=== PATIENT | male | born 1970 | race Caucasian/White ===

== ENCOUNTER 2017-09-07 13:23 | Emergency (ER) | payer OTHER ==
[~2017-09-07] VITALS: Ht 152.4 cm; Wt 84.5 kg
[~2017-09-07 13:23] MED LIST: BACTDS PO; CEPH-443 PO; HYDR-3498 PO; NAPR-260 PO
[2017-09-07 13:25] VITALS: Ht 152.4 cm; Wt 84.5 kg
[2017-09-07] MEDS ORDERED: IBUPROFEN 600 MG TAB PO ONE (15:00)
--- NOTE | 2017-09-07 15:47 | RADRPT ---
PROCEDURE: XR Chest. CLINICAL INDICATION: Chest pain. TECHNIQUE: Single frontal chest x-ray. COMPARISON: Chest radiograph 10/17/2013. FINDINGS: The lungs volumes are diminished. There are compressive changes with vascular crowding and basilar atelectasis. No pneumothorax, pleural effusion or consolidation is noted. The cardiomediastinal si lhouette is unremarkable. No acute osseous abnormality is noted. IMPRESSION: 1. Low lung volumes with compressive changes and basilar atelectasis. 2. Otherwise, no acute cardiopulmonary abnormality. RPTAT: HH .Renetta Briceno MD, Date Time Electronically viewed and signed by .Renetta Briceno MD, on 09/07/2017 15:47 .N/
--- NOTE | 2017-09-07 16:46 | RADRPT ---
PROCEDURE: CT Lumbar Spine without intravenous contrast CLINICAL INDICATION: Low back pain. COMPARISON: None available. TECHNIQUE: Axial noncontrast CT images of the lumbar spine with coronal and sagittal reformats. DOSE ESTIMATE: CTDI vol = 29 mGy. DLP = 838 mGy-cm. One or more of the following dose reduction te chniques were used: automated exposure control, adjustment of the mA and/or kV according to patient size, or use of iterative reconstruction. FINDINGS: Segmentation: For this report the last well-formed disc is labeled L5-S1. Alignment: Dextroconvex curvature of the lumbar spine which may be positional in nature. Vertebrae: No fracture, vertebral body height loss, or destructive bone lesion. Discs: No disc height loss. Degenerative change: T10-T11: Moderate right lateral anterior bridging endplate spurs. No central canal or foraminal yuridia rowing. T11-T12: No disc herniation. No central canal or foraminal narrowing. T12-L1: No disc herniation. No spinal canal or foraminal narrowing. L1-L2: No disc herniation. No spinal canal or foraminal narrowing. L2-L3: 4 mm disc bulge eccentric to the left with ligamentum flavum laxity results in mild central c anal narrowing, partial effacement of the left lateral recess, and moderate bilateral foraminal narr owing. L3-L4: 3 mm disc bulge, ligamentum flavum laxity, and dorsal epidural fat results in moderate centra l canal narrowing and mild bilateral foraminal narrowing. L4-L5: 3 mm disc bulge, mild bilateral facet arthropathy, ligamentum flavum laxity, and dorsal epidu ral fat results in moderate central canal narrowing. Mild left foraminal narrowing and moderate righ t foraminal narrowing. L5-S1: Moderate bilateral facet arthropathy. Circumferential epidural fat tapers the spinal canal. No central canal narrowing. Mild bilateral foraminal narrowing. Para-vertebral soft tissues: Normal. Visualized abdomen and pelvis: Multiple calcifications within the pancreas which may be sequela of r emote pancreatitis. Additional comment: None. IMPRESSION: 1. Moderate dextroconvex curvature of the lumbar spine which may be positional in nature. 2. Mild degenerative disc disease between L2-L3 and L4-L5 resulting in varying degrees of mild to mo derate central canal and foraminal narrowing. RPTAT: AA Negin Bates Physician Date Time Electronically viewed and signed by Negin Bates, Physician on 09/07/2017 16:45 LG/
--- NOTE | 2017-09-07 16:51 | RADRPT ---
PROCEDURE: CT thoracic spine without contrast CLINICAL INDICATION: Back pain. TECHNIQUE: CT scan of the thoracic spine [facility] No IV contrast was administered. Coronal and sagittal reformatted images were obtained from th e axial source images. Images were reviewed on a high-resolution PACS workstation. One or more the following does reduction techniques were utilized: Automated exposure control, adjustment of the mA/ or kV according to patient's size, or use of iterative reconstruction technique. Exam CTDI = 26.77 mGy and the DLP = 1015.50 mGy-cm. COMPARISON: None available FINDINGS: There is preservation of the normal thoracic kyphosis. Mild levoconvex curvature of thoracic spine i s noted. No acute fracture or dislocation is seen. The vertebral body heights are all well preserv ed. There are multilevel mild degenerative changes of thoracic spine with decreased disk spaces and oste ophytosis. Multilevel facet arthropathy is noted which contribute to multilevel foraminal stenosis: At T2-T3 mi ld to moderate on the right and mild on the left, and T3-C4 mild to moderate bilaterally at T4-T5 mo derate to severe on the right and mild on the left at T5-T6 mild to moderate on the right and mild o n the left, at T6-C7 mild on the left, at T7-T8 mild on the left, at T8-T9 mild on the right, at T10 -T11 mild on the right, and at T11-T12 moderate on the right. No significant thoracic bony spinal canal stenosis is noted per The paraspinous soft tissues demonstrate no significant soft tissue swelling or mass. Bilateral dependent atelectasis is noted. IMPRESSION: 1. No acute thoracic spine fracture or subluxation. 2. Multilevel mild thoracic discogenic disease. 3. Multilevel foraminal stenosis as outlined in details in findings. RPTAT: HH .Renetta Briceno MD, MD Date Time Electronically viewed and signed by .Renetta Briceno MD, MD on 09/07/2017 16:51 .N/
--- NOTE | 2017-09-07 16:57 | RADRPT ---
PROCEDURE: Renal US. CLINICAL INDICATION: Flank pain TECHNIQUE: Multiple sonographic images of the kidneys were obtained. COMPARISON: No prior studies are available for comparison. FINDINGS: The kidneys are well visualized. The right kidney measures 11.2 cm. The left kidney measures 12.1 cm . Normal renal cortical echogenicity. No evidence of shadowing renal calculi. No hydronephrosis. No ndistended urinary bladder. IMPRESSION: Normal renal ultrasound. RPTAT:AAJJ Physician Emiliano Date Time Electronically viewed and signed by Tim Childers Physician on 09/07/2017 16:56 /
[2017-09-07] MEDS ORDERED: NAPR-260 PO (17:19)
[2017-09-07] MEDS ORDERED: TRAM50TA2 PO (17:19)
--- NOTE | 2017-09-08 17:01 | ERD ---
ER Documentation Chief Complaint Chief Complaint LOWER BACK PAIN SINCE YESTERDAY DENIES TRAUMA HPI Patient is a 46-year-old male presenting to the emergency department with complaints of mid paraspinal thoracic back pain bilaterally intermittent for the past 2 months. Worse with movement. He also reports mild shortness of breath on exertion. Currently he has no chest pain or shortness of breath. He had x-rays in the spine by his primary care physician approximately 3 weeks ago , which were negative for acute abnormalities. He does have past medical history of type 2 diabetes and gastric ulcer. He denies fevers, night sweats, chills, nausea, vomiting, diarrhea, or other symptoms currently. ROS All systems reviewed and are negative except as per history of present illness. Medications Home Meds Active Scripts Tramadol HCl (Tramadol HCl) 50 Mg Tablet, 50 MG PO Q4 Y for PAIN, #15 TAB Prov:ZITA HUTTON PA-C 09/07/17 Naproxen* (Naprosyn*) 500 Mg Tablet, 500 MG PO BID Y for PAIN AND/OR INFLAMMATION, #15 TAB Prov:ZITA HUTTON PA-C 09/07/17 Cephalexin* (Keflex*) 500 Mg Capsule, 500 MG PO QID, #30 CAP Prov:SAMANTHA,NILO DO 07/24/15 Sulfamethoxazole-Trimethoprim* (Bactrim* DS) 800-160 Mg Tab, 1 TAB PO BID for 10 Days, TAB Prov:SAMANTHANILO DO 07/24/15 Naproxen* (Naprosyn*) 500 Mg Tablet, 500 MG PO BID Y for PAIN AND/OR INFLAMMATION, #14 TAB Prov:SAMANTHA,NILO DO 07/24/15 Hydrocodone Bit-Acetaminophen* ([place]*) 5-325 Mg Tab, 1 TAB PO Q6 Y for PAIN, # 15 TAB Prov:SAMANTHALEVINILO DO 07/24/15 Allergies Allergies: Coded Allergies: No Known Allergy (Unverified , 10/16/13) PMhx/Soc History of Surgery: No Anesthesia Reaction: No Hx Neurological Disorder: No Hx Respiratory Disorders: No Hx Cardiac Disorders: Yes (htn) Hx Psychiatric Problems: No Hx Miscellaneous Medical Probl: Yes (ulcers; DM; erectile dysfunction) Hx Alcohol Use: No Hx Substance Use: No Hx Tobacco Use: No Smoking Status: Never smoker Physical Exam Vitals Vital Signs Date Time Temp Pulse Resp B/P Pulse Ox O2 Delivery O2 Flow Rate FiO2 09/07/17 13:25 98.0 79 92 174/93 99 Physical Exam Const: Nontoxic, well-appearing male in no acute distress. Head: Atraumatic Eyes: Normal Conjunctiva ENT: Normal External Ears, Nose and Mouth. Neck: Full range of motion..~ No meningismus. Resp: Clear to auscultation bilaterally Cardio: Regular rate and rhythm, no murmurs Abd: Soft, non tender, non distended. Normal bowel sounds Skin: No petechiae or rashes Back: No midline or flank tenderness Ext: No cyanosis, or edema Neur: Awake and alert Psych: Normal Mood and Affect Result Diagram: 09/07/17 1410 09/07/17 1410 Results 24 hrs Laboratory Tests Test 09/07/17 14:10 White Blood Count 12.210^3/ul Red Blood Count 5.0510^6/ul Hemoglobin 15.0g/dl Hematocrit 43.8% Mean Corpuscular Volume 86.7fl Mean Corpuscular Hemoglobin 29.7pg Mean Corpuscular Hemoglobin Concent 34.2g/dl Red Cell Distribution Width 11.8% Platelet Count 25181^3/UL Mean Platelet Volume 9.3fl Neutrophils % 74.7% Lymphocytes % 16.3% Monocytes % 7.7% Eosinophils % 0.6% Basophils % 0.4% Nucleated Red Blood Cells % 0.0/100WBC Neutrophils # 9.110^3/ul Lymphocytes # 2.010^3/ul Monocytes # 0.910^3/ul Eosinophils # 0.110^3/ul Basophils # 0.110^3/ul Nucleated Red Blood Cells # 0.010^3/ul Urine Color YELLOW Urine Clarity CLEAR Urine pH 5.0 Urine Specific [place] 1.036 Urine Ketones 2+mg/dL Urine Nitrite NEGATIVEmg/dL Urine Bilirubin NEGATIVEmg/dL Urine Urobilinogen NEGATIVEmg/dL Urine Leukocyte Esterase NEGATIVELeu/ul Urine Hemoglobin NEGATIVEmg/dL Urine Glucose 3+mg/dL Urine Total Protein NEGATIVEmg/dl Sodium Level 139mmol/L Potassium Level 4.0mmol/L Chloride Level 97mmol/L Carbon Dioxide Level 25mmol/L Anion Gap 21 Blood Urea Nitrogen 12mg/dl Creatinine 0.67mg/dl Glucose Level 143mg/dl Calcium Level 9.6mg/dl Total Bilirubin 1.1mg/dl Direct Bilirubin 0.00mg/dl Indirect Bilirubin 1.1mg/dl Aspartate Amino Transf (AST/SGOT) 27IU/L Alanine Aminotransferase (ALT/SGPT) 43IU/L Alkaline Phosphatase 106IU/L Troponin I < 0.012ng/ml Total Protein 7.9g/dl Albumin 4.8g/dl Globulin 3.10g/dl Albumin/Globulin Ratio 1.54 Current Medications Medications (Trade) Dose Ordered Sig/Js Route PRN Reason Start Time Stop Time Status Last Admin Dose Admin Ibuprofen (Motrin) 600 mg ONCE ONCE PO 09/07/17 15:00 09/07/17 15:01 DC 09/07/17 14:50 Procedures/MDM 46-year-old male presents to the emergency department with complaints of thoracic back pain. The patient was given ibuprofen in the department and he is feeling improved prior to discharge. I did obtain a full workup since the patient already saw his primary care physician and was sent here for rule out of life-threatening pathology. CBC showed mild leukocytosis at 12.2, but no neutrophilia. This is likely an incidental finding. Chemistry panel was negative for any acute abnormalities. Troponin was not elevated. Urine did show 3+ glucose, but no other significant findings. When this was cross- referenced with the blood glucose, there was no concern for DKA. I did obtain imaging studies as well. Chest x-ray showed low lung volumes with compressive changes and basilar atelectasis. Otherwise, no acute cardiopulmonary abnormality. CT of the lumbar spine showed moderate dextroconvex curvature of the lumbar spine which may be positional in nature, mild degenerative disc disease between L2-L3 and L4-L5 resulting in varying degrees of mild to moderate central canal and foraminal narrowing. Because of mid back pain, I also obtained a renal ultrasound which showed no abnormalities. CT thoracic spine showed no acute thoracic spine fracture or subluxation. Patient's workup in the department was essentially unremarkable for any life-threatening pathology. Unclear etiology for the patient's symptoms at this time. Low suspicion for acute coronary syndrome, aortic dissection, pulmonary embolism, epidural abscess, cauda equina, or other emergent conditions. Patient is stable for discharge with close follow-up with his primary care physician. He was given a prescription for naproxen and tramadol. He agreed with the discharge plan a diagnosis. EKG: Reviewed by ED physician. Rate/Rhythm: Normal sinus rhythm with a rate of 80 bpm. QRS, ST, T-waves: No changes consistent w/ acute ischemia Impression: No evidence of ischemia or arrhythmia No evidence of life-threatening pathology at time of discharge. Pt/family in agreement with discharge plan/diagnosis. Pt/family advised to return immediately with any new or worsening symptoms. Follow-up with primary care physician within the next 1-2 days. Disclaimer: Inadvertent spelling and grammatical errors are likely due to EHR/ dictation software use and do not reflect on the overall quality of patient care. Also, please note that the electronic time recorded on this note does not necessarily reflect the actual time of the patient encounter. PROCEDURE: CT thoracic spine without contrast CLINICAL INDICATION: Back pain. TECHNIQUE: CT scan of the thoracic spine was performed on a multidetector high -resolution CT scanner. No IV contrast was administered. Coronal and sagittal reformatted images were obtained from the axial source images. Images were reviewed on a high-resolution PACS workstation. One or more the following does reduction techniques were utilized: Automated exposure control, adjustment of the mA/ or kV according to patient's size, or use of iterative reconstruction technique. Exam CTDI = 26.77 mGy and the DLP = 1015.50 mGy-cm. COMPARISON: None available FINDINGS: There is preservation of the normal thoracic kyphosis. Mild levoconvex curvature of thoracic spine is noted. No acute fracture or dislocation is seen. The vertebral body heights are all well preserved. There are multilevel mild degenerative changes of thoracic spine with decreased disk spaces and osteophytosis. Multilevel facet arthropathy is noted which contribute to multilevel foraminal stenosis: At T2-T3 mild to moderate on the right and mild on the left, and T3- C4 mild to moderate bilaterally at T4-T5 moderate to severe on the right and mild on the left at T5-T6 mild to moderate on the right and mild on the left, at T6-C7 mild on the left, at T7-T8 mild on the left, at T8-T9 mild on the right , at T10-T11 mild on the right, and at T11-T12 moderate on the right. No significant thoracic bony spinal canal stenosis is noted per The paraspinous soft tissues demonstrate no significant soft tissue swelling or mass. Bilateral dependent atelectasis is noted. IMPRESSION: 1. No acute thoracic spine fracture or subluxation. 2. Multilevel mild thoracic discogenic disease. 3. Multilevel foraminal stenosis as outlined in details in findings. RPTAT: HH .Renetta Briceno MD, MD Date Time Electronically viewed and signed by .Renetta Briceno MD, MD on 09/07/2017 16: 51 PROCEDURE: Renal US. CLINICAL INDICATION: Flank pain TECHNIQUE: Multiple sonographic images of the kidneys were obtained. COMPARISON: No prior studies are available for comparison. FINDINGS: The kidneys are well visualized. The right kidney measures 11.2 cm. The left kidney measures 12.1 cm. Normal renal cortical echogenicity. No evidence of shadowing renal calculi. No hydronephrosis. Nondistended urinary bladder. IMPRESSION: Normal renal ultrasound. RPTAT:AAJJ Physician Emiliano Date Time Electronically viewed and signed by Physician Emiliano on 09/07/2017 16 :56 PROCEDURE: CT Lumbar Spine without intravenous contrast CLINICAL INDICATION: Low back pain. COMPARISON: None available. TECHNIQUE: Axial noncontrast CT images of the lumbar spine with coronal and sagittal reformats. DOSE ESTIMATE: CTDI vol = 29 mGy. DLP = 838 mGy-cm. One or more of the following dose reduction techniques were used: automated exposure control, adjustment of the mA and/or kV according to patient size, or use of iterative reconstruction. FINDINGS: Segmentation: For this report the last well-formed disc is labeled L5-S1. Alignment: Dextroconvex curvature of the lumbar spine which may be positional in nature. Vertebrae: No fracture, vertebral body height loss, or destructive bone lesion. Discs: No disc height loss. Degenerative change: T10-T11: Moderate right lateral anterior bridging endplate spurs. No central canal or foraminal narrowing. T11-T12: No disc herniation. No central canal or foraminal narrowing. T12-L1: No disc herniation. No spinal canal or foraminal narrowing. L1-L2: No disc herniation. No spinal canal or foraminal narrowing. L2-L3: 4 mm disc bulge eccentric to the left with ligamentum flavum laxity results in mild central canal narrowing, partial effacement of the left lateral recess, and moderate bilateral foraminal narrowing. L3-L4: 3 mm disc bulge, ligamentum flavum laxity, and dorsal epidural fat results in moderate central canal narrowing and mild bilateral foraminal narrowing. L4-L5: 3 mm disc bulge, mild bilateral facet arthropathy, ligamentum flavum laxity, and dorsal epidural fat results in moderate central canal narrowing. Mild left foraminal narrowing and moderate right foraminal narrowing. L5-S1: Moderate bilateral facet arthropathy. Circumferential epidural fat tapers the spinal canal. No central canal narrowing. Mild bilateral foraminal narrowing. Para-vertebral soft tissues: Normal. Visualized abdomen and pelvis: Multiple calcifications within the pancreas which may be sequela of remote pancreatitis. Additional comment: None. IMPRESSION: 1. Moderate dextroconvex curvature of the lumbar spine which may be positional in nature. 2. Mild degenerative disc disease between L2-L3 and L4-L5 resulting in varying degrees of mild to moderate central canal and foraminal narrowing. RPTAT: AA Physician William Date Time Electronically viewed and signed by Physician William on 09/07/2017 16: 45 PROCEDURE: XR Chest. CLINICAL INDICATION: Chest pain. TECHNIQUE: Single frontal chest x-ray. COMPARISON: Chest radiograph 10/17/2013. FINDINGS: The lungs volumes are diminished. There are compressive changes with vascular crowding and basilar atelectasis. No pneumothorax, pleural effusion or consolidation is noted. The cardiomediastinal silhouette is unremarkable. No acute osseous abnormality is noted. IMPRESSION: 1. Low lung volumes with compressive changes and basilar atelectasis. 2. Otherwise, no acute cardiopulmonary abnormality. RPTAT: HH .Renetta Briceno MD, MD Date Time Electronically viewed and signed by .Renetta Briceno MD, MD on 09/07/2017 15:47 Departure Diagnosis: Primary Impression: Back pain Back pain location: thoracic back pain Chronicity: unspecified Back pain laterality: unspecified Qualified Code: M54.6 - Thoracic back pain, unspecified back pain laterality, unspecified chronicity Condition: Fair Patient Instructions: Back Pain (Acute Or Chronic) Additional Instructions: Follow up with your PCP within the next 1-3 days for a repeat evaluation. If you require a referral to a specialist, your Primary Care Provider may be able to provide this for you. In most patient cases, a referral is not required. If you have further questions regarding this matter, please ask your Primary Care Provider. Return the the emergency department immediately if symptoms worsen or change. If you have any questions regarding medications, ask your pharmacist or us before you leave. If any adverse reactions, occur while taking your medications, discontinue the treatment and return to the emergency department immediately. If any new or worsening symptoms, uncontrolled fevers, or other unexplained symptoms occur, return to the emergency department immediately. Take your medications as directed, and complete the entire course of treatment. ZITA HUTTON PA-C Sep 08, 2017 17:01
== END 2017-09-07 17:23 | disposition home or self-care (01) ==
LOC: FTE 13:23
DX: M54.6 Pain in thoracic spine (principal); I10 Essential (primary) hypertension; E11.9 Type 2 diabetes mellitus without complications
CPT/HCPCS: 71010; 72128; 72131; 76775; 80053; 81003; 84484; 85025; 93005